=== PATIENT | male | born 1970 ===

== ENCOUNTER 2017-06-26 23:39 | Emergency (ER) | payer OTHER, SELFPAY ==
[2017-06-26 23:39] VITALS: BMI 27.4
[2017-06-27 00:05] VITALS: O2SAT 99
--- NOTE | 2017-06-27 01:32 | ED PDOC ---
HPI: Back Time Seen by Provider: 06/27/17 00:34 Chief Complaint (Nursing): Back Pain Chief Complaint (Provider): back pain History Per: Patient History/Exam Limitations: no limitations Onset/Duration Of Symptoms: Days (2) Current Symptoms Are (Timing): Still Present Exacerbating Factor(s): Turning, Movement Additional Complaint(s): 46 y/o male presents with right-sided back pain x 2 days. Patient states he lifted and a heavy pail at work with his right arm and walked with it and noticed the pain soon after. Pain is worse with movement and to touch. Denies fever, nausea/vomiting, abdominal pain, hematuria/dysuria, bowel/bladder incontinence. No medications taken for relief thus far. Past Medical History Reviewed: Historical Data, Nursing Documentation, Vital Signs Vital Signs: Last Vital Signs Temp 98 F 06/27/17 00:01 Pulse 78 06/27/17 00:01 Resp 18 06/27/17 00:01 BP 122/77 06/27/17 00:01 Pulse Ox 99 06/27/17 00:01 - Medical History PMH: Anxiety, Arthritis, Back Problems, Gastritis Denies: Asthma (per old chart but pt denies), Diabetes, Hepatitis, Chronic Kidney Disease - Surgical History Surgical History: Back Surgery (x2) - Family History Family History: States: Unknown Family Hx - Immunization History Hx Tetanus Toxoid Vaccination: No Hx Influenza Vaccination: No Hx Pneumococcal Vaccination: No - Home Medications Home Medications: Ambulatory Orders Medication Instructions Recorded Gabapentin 300 mg PO DAILY 01/19/16 Sertraline [Zoloft] 25 mg PO DAILY 01/19/16 Cyclobenzaprine [Cyclobenzaprine 10 mg PO HS 04/20/16 HCl] Ibuprofen [Motrin Tab] 600 mg PO Q8 #30 tab 04/20/16 oxyCODONE/Acetaminophen [Percocet 1 tab PO QID PRN #20 tab 04/20/16 5/325 mg Tab] - Allergies Allergies/Adverse Reactions: Allergies Allergy/AdvReac Type Severity Reaction Status Date / Time No Known Allergies Allergy Verified 07/16/15 17:51 Review of Systems ROS Statement: Except As Marked, All Systems Reviewed And Found Negative Musculoskeletal: Positive for: Back Pain Physical Exam - Reviewed Nursing Documentation Reviewed: Yes Vital Signs Reviewed: Yes - Physical Exam Appears: Positive for: Well, Non-toxic, No Acute Distress Cardiovascular/Chest: Positive for: Regular Rate, Rhythm Respiratory: Positive for: Normal Breath Sounds Back: Positive for: Normal Inspection, Muscle Spasm (tender to palpate right lateral back, inferior to ribs). Negative for: L CVA Tenderness, R CVA Tenderness Extremity: Positive for: Normal ROM Neurologic/Psych: Positive for: Alert, Oriented - ECG O2 Sat by Pulse Oximetry: 99 - Progress ED Course And Treament: udip, Toradol IM, flexeril PO On re-eval, patient states pain resolved. Patient educated on findings, discharged with rx Naproxen, Flexeril. Advised follow up PMD 2-3 days. Return precautions given Disposition - Clinical Impression Clinical Impression: Back strain - Patient ED Disposition Is Patient to be Admitted: No Counseled Patient/Family Regarding: Studies Performed, Diagnosis, Need For Followup, Rx Given - Disposition Referrals: [facility] [Outside] Disposition: Routine/Home Disposition Time: 03:06 Condition: IMPROVED Instructions: Muscle Strain Print Language: BENGALI
[2017-06-27 03:44] VITALS: BP 129/80; PULSE 81; RESP 17; TEMP 98
== END 2017-06-27 03:10 | disposition home or self-care (01) ==
LOC: H.ER 23:39
DX: S39.012A Strain of muscle, fascia and tendon of lower back, initial encounter (principal); X50.9XXA Other and unspecified overexertion or strenuous movements or postures, initial encounter; Y99.0 Civilian activity done for income or pay; F41.9 Anxiety disorder, unspecified
CPT/HCPCS: 96372; 99283; J1885

== ENCOUNTER 2017-07-09 17:25 | Emergency (ER) | payer OTHER ==
[2017-07-09 17:26] VITALS: BMI 27.4
[2017-07-09 17:40] VITALS: BP 148/84; PULSE 80; RESP 19; TEMP 98; O2SAT 100
--- NOTE | 2017-07-09 18:11 | ED PDOC ---
HPI: Back Time Seen by Provider: 07/09/17 17:59 Chief Complaint (Nursing): Back Pain Chief Complaint (Provider): Back Pain History Per: Patient History/Exam Limitations: no limitations Onset/Duration Of Symptoms: Days (> 1 month) Current Symptoms Are (Timing): Still Present Previous Symptoms: Back Pain Additional Complaint(s): 46 year old male with known history of herniated discs in lumbar and thoracic spine, presents today complaining of chronic left mid back pain. States he is on oxycodone, naproxen, and flexeril at night with no improvement of his pain. Pain has been preventing him from working for the past month. Otherwise: (-) fever, (-) cough, (-) chest pain, (-) SOB, (-) paresthesias, (-) weakness, (-) trauma, (-) injury, (-) urinary symptoms, (-) acute bowel or bladder dysfunction. PMD: Dr. Enrique Nguyen Past Medical History Reviewed: Historical Data, Nursing Documentation, Vital Signs Vital Signs: Last Vital Signs Temp 98.0 F 07/09/17 17:38 Pulse 80 07/09/17 17:38 Resp 19 07/09/17 17:38 BP 148/84 07/09/17 17:38 Pulse Ox 100 07/09/17 17:38 - Medical History PMH: Anxiety, Arthritis, Back Problems (herniated discs), Gastritis Denies: Asthma (per old chart but pt denies), Diabetes, Hepatitis, Chronic Kidney Disease - Surgical History Surgical History: Back Surgery (x2) - Family History Family History: States: Unknown Family Hx - Immunization History Hx Tetanus Toxoid Vaccination: No Hx Influenza Vaccination: No Hx Pneumococcal Vaccination: No - Home Medications Home Medications: Ambulatory Orders Medication Instructions Recorded Gabapentin 300 mg PO DAILY 01/19/16 Sertraline [Zoloft] 25 mg PO DAILY 01/19/16 Cyclobenzaprine [Cyclobenzaprine 10 mg PO HS 04/20/16 HCl] Ibuprofen [Motrin Tab] 600 mg PO Q8 #30 tab 04/20/16 oxyCODONE/Acetaminophen [Percocet 1 tab PO QID PRN #20 tab 04/20/16 5/325 mg Tab] Cyclobenzaprine [Cyclobenzaprine 10 mg PO BID PRN #14 tab 06/27/17 HCl] Naproxen [Naprosyn] 500 mg PO Q12 PRN #20 tablet 06/27/17 Meloxicam [Mobic] 15 mg PO DAILY PRN #30 tab 07/09/17 - Allergies Allergies/Adverse Reactions: Allergies Allergy/AdvReac Type Severity Reaction Status Date / Time No Known Allergies Allergy Verified 07/16/15 17:51 Review of Systems ROS Statement: Except As Marked, All Systems Reviewed And Found Negative Constitutional: Negative for: Fever, Chills Cardiovascular: Negative for: Chest Pain Respiratory: Negative for: Cough, Shortness of Breath Genitourinary Male: Negative for: Dysuria, Frequency, Incontinence, Hematuria Musculoskeletal: Positive for: Back Pain Neurological: Negative for: Weakness, Numbness, Other (paresthesia) Physical Exam - Reviewed Nursing Documentation Reviewed: Yes Vital Signs Reviewed: Yes - Physical Exam Comments: GENERAL APPEARANCE: Patient is awake, alert, oriented x 3, in no acute distress. Able to ambulate to and from the bathroom with steady gait. SKIN: Warm, dry; (-) cyanosis. EYES: (-) conjunctival pallor. ENMT: Mucous membranes moist. NECK: (-) tenderness, (-) stiffness, (-) lymphadenopathy. CHEST AND RESPIRATORY: (-) rales, (-) rhonchi, (-) wheezes; breath sounds equal bilaterally. HEART AND CARDIOVASCULAR: (-) irregularity; (-) murmur, (-) gallop. ABDOMEN AND GI: Soft; (-) tenderness; (-) palpable mass. BACK: (-) rash, (-) deofrmity, (-) direct bony tenderness, (-) paravertebral tenderness, (-) deformity. EXTREMITIES: (-) deformity. Distal pulses good bilaterally. NEURO AND PSYCH: Mental status as above. Intact sensation bilaterally; normal strength. - ECG O2 Sat by Pulse Oximetry: 100 (RA) Pulse Ox Interpretation: Normal Medical Decision Making Medical Decision Making: Impression: Chronic back pain Time: 18:06 Plan: Patient is specifically asking for an x-ray of his back. XR THORACIC SPINE: No fracture, +DJD, as read by PA. Patient advised that official radiology read of XR is still pending and will call the patient if there is any discrepancy within 24 hours. Advised to follow up with primary care physician or the clinic in 1-2 days without fail. Advised to take medication as prescribed. Return to the emergency room at any time for any new or worsening symptoms. Patient states he fully agrees with and understands discharge instructions. States that he agrees with the plan and disposition. Verbalized and repeated discharge instructions and plan. I have given the patient opportunity to ask any additional questions. Scribe Attestation: Documented by Elisabeth Harmon, acting as a scribe for Toya Espinosa PA-C. Provider Scribe Attestation: All medical record entries made by the Scribe were at my direction and personally dictated by me. I have reviewed the chart and agree that the record accurately reflects my personal performance of the history, physical exam, medical decision making, and the department course for this patient. I have also personally directed, reviewed, and agree with the discharge instructions and disposition. Disposition - Clinical Impression Clinical Impression: Mid back pain - Patient ED Disposition Is Patient to be Admitted: No Counseled Patient/Family Regarding: Studies Performed, Diagnosis, Need For Followup, Rx Given - Disposition Disposition: Routine/Home Disposition Time: 20:30 Condition: STABLE Additional Instructions: Thank you for letting us take care of you today. You were treated for mid back pain. The emergency medical care you received today was directed at your acute symptoms. If you were prescribed any medication, please fill it and take as directed. It may take several days for your symptoms to resolve. Return to the Emergency Department if your symptoms worsen, do not improve, or if you have any other problems. Please call one of the physicians/clinics you have been referred to that are listed on the Patient Visit Information form that is included in your discharge packet. Bring any paperwork you were given at discharge with you along with any medications you are taking to your follow up visit. Our treatment cannot replace ongoing medical care by a primary care provider (PCP) outside of the emergency department. Thank you for allowing the [facility] team to be part of your care today. Prescriptions: Meloxicam [Mobic] 15 mg PO DAILY PRN #30 tab PRN Reason: Pain, Moderate (4-7) Instructions: Upper Back Pain Forms: [facility] (Austrian) Print Language: TAJIK
--- NOTE | 2017-07-09 18:48 | RAD ---
HISTORY: pain COMPARISON: No prior. FINDINGS: BONES: There is normal alignment of the thoracic vertebral bodies. There is normal thoracic kyphosis. There is no acute fracture. DISC SPACES: There is mild multilevel degenerative disc disease with anterior spurring and reduced disc heights. SOFT TISSUES: Normal. OTHER FINDINGS: None. IMPRESSION: No acute fracture. Mild multilevel degenerative disc disease.
== END 2017-07-09 20:40 | disposition home or self-care (01) ==
LOC: H.ER 17:25
DX: M54.9 Dorsalgia, unspecified (principal); G89.29 Other chronic pain

== ENCOUNTER 2017-10-10 09:18 | Emergency (ER) | payer OTHER, SELFPAY ==
[2017-10-10 09:25] VITALS: BMI 28.1
[2017-10-10 09:27] VITALS: RESP 20; O2SAT 98
--- NOTE | 2017-10-10 09:55 | ED PDOC ---
Lower Extremity Pain/Injury Time Seen by Provider: 10/10/17 09:32 Chief Complaint (Nursing): Lower Extremity Problem/Injury Chief Complaint (Provider): Left Knee Pain History Per: Patient History/Exam Limitations: no limitations Onset/Duration Of Symptoms: Days Current Symptoms Are (Timing): Still Present Additional Complaint(s): 46 year old male with arthritis of knee presents to the ED for an evaluation of left knee pain. Reports he has knee pain since 2011. He states the pain is worse on ambulation. Denies any new trauma or fever. PMD: No Family Provider Past Medical History Reviewed: Historical Data, Nursing Documentation, Vital Signs Vital Signs: Last Vital Signs Temp 98.3 F 10/10/17 09:25 Pulse 72 10/10/17 09:25 Resp 20 10/10/17 09:34 BP 118/75 10/10/17 09:25 Pulse Ox 98 10/10/17 09:34 - Medical History PMH: Anxiety, Arthritis, Back Problems (herniated discs), Gastritis Denies: Asthma (per old chart but pt denies), Diabetes, Hepatitis, Chronic Kidney Disease - Surgical History Surgical History: Back Surgery (x2) - Family History Family History: States: Unknown Family Hx - Immunization History Hx Tetanus Toxoid Vaccination: No Hx Influenza Vaccination: No Hx Pneumococcal Vaccination: No - Home Medications Home Medications: Ambulatory Orders Medication Instructions Recorded Gabapentin 300 mg PO DAILY 01/19/16 Sertraline [Zoloft] 25 mg PO DAILY 01/19/16 Cyclobenzaprine [Cyclobenzaprine 10 mg PO HS 04/20/16 HCl] Ibuprofen [Motrin Tab] 600 mg PO Q8 #30 tab 04/20/16 oxyCODONE/Acetaminophen [Percocet 1 tab PO QID PRN #20 tab 04/20/16 5/325 mg Tab] Cyclobenzaprine [Cyclobenzaprine 10 mg PO BID PRN #14 tab 06/27/17 HCl] Naproxen [Naprosyn] 500 mg PO Q12 PRN #20 tablet 06/27/17 Meloxicam [Mobic] 15 mg PO DAILY PRN #30 tab 07/09/17 Naproxen [Naprosyn] 500 mg PO Q12H #20 tab 10/10/17 - Allergies Allergies/Adverse Reactions: Allergies Allergy/AdvReac Type Severity Reaction Status Date / Time No Known Allergies Allergy Verified 07/16/15 17:51 Review of Systems ROS Statement: Except As Marked, All Systems Reviewed And Found Negative Constitutional: Negative for: Fever, Other (trauma) Musculoskeletal: Positive for: Leg Pain (left knee pain) Psych: Negative for: Suicidal ideation (homicidal ideation ) Physical Exam - Reviewed Nursing Documentation Reviewed: Yes Vital Signs Reviewed: Yes - Physical Exam Appears: Positive for: Non-toxic, No Acute Distress Head Exam: Positive for: ATRAUMATIC, NORMAL INSPECTION, NORMOCEPHALIC Skin: Positive for: Normal Color, Warm, Dry Extremity: Positive for: Normal ROM. Negative for: Tenderness, Deformity, Swelling Neurologic/Psych: Positive for: Alert, Oriented (x3) - ECG O2 Sat by Pulse Oximetry: 98 (RA) Pulse Ox Interpretation: Normal Medical Decision Making Medical Decision Making: Time: 948 Initial Impression: left knee pain Initial Plan: --Knee 3 Views LT [RAD] --Reevaluation Scribe Attestation: Documented by Desmond Mcgregor, acting as a scribe for Jr Sanabria MD Provider Scribe Attestation: All medical record entries made by the Scribe were at my direction and personally dictated by me. I have reviewed the chart and agree that the record accurately reflects my personal performance of the history, physical exam, medical decision making, and the department course for this patient. I have also personally directed, reviewed, and agree with the discharge instructions and disposition. Disposition - Clinical Impression Clinical Impression: Knee pain - Patient ED Disposition Is Patient to be Admitted: No Counseled Patient/Family Regarding: Studies Performed, Diagnosis, Need For Followup, Rx Given - Disposition Referrals: Yesika Crowell MD [Staff Provider] - Disposition: Routine/Home Disposition Time: 10:26 Condition: FAIR Prescriptions: Naproxen [Naprosyn] 500 mg PO Q12H #20 tab Instructions: Chronic Knee Pain Forms: [facility] (Kiswahili) Print Language: ROMANIAN
[2017-10-10 10:40] VITALS: BP 120/70; PULSE 78; TEMP 98
--- NOTE | 2017-10-10 14:53 | RAD ---
Date of service: 10/10/2017 PROCEDURE: Left Knee Radiographs. HISTORY: Pain. COMPARISON: None. FINDINGS: BONES: Normal. No fracture. JOINTS: Normal. No osteoarthritis. JOINT EFFUSION: None. OTHER FINDINGS: None. IMPRESSION: Normal radiographs of the left knee.
== END 2017-10-10 10:42 | disposition home or self-care (01) ==
LOC: H.ER 09:18
DX: M25.562 Pain in left knee (principal)